=== PATIENT | male | born 1980 | race Caucasian/White ===

== ENCOUNTER 2016-11-05 14:47 | Emergency (ER) | payer MEDICAID, OTHER ==
[2016-11-05 14:49] VITALS: BP 128/82; PULSE 86; RESP 20; TEMP 98.5; O2SAT 98
[2016-11-05] MEDS ORDERED: SODIUM CHLOR 0.9% 1000 ML INJ 1,000 ML IV ONE (15:03)
[2016-11-05 15:11] VITALS: O2SAT 97
[2016-11-05] MEDS ORDERED: SODIUM CHLORIDE 0.9% FLUSH 10 ML FLUSH IVF PRN (15:15)
[2016-11-05 15:19] LABS: AUTOMATED NEUTROPHIL # 6.4 TH/MM3 (1.8-7.7); BASOPHIL # 0.1 TH/MM3 (0-0.2); BASOPHIL % 0.6 % (0.0-2.0); EOSINOPHIL # 0.1 TH/MM3 (0-0.4); EOSINOPHIL % 1.2 % (0.0-4.0); HEMO FLAGS DIFF FINAL; LYMPH % 17.3 % (9.0-44.0); LYMPHOCYTE # 1.5 TH/MM3 (1.0-4.8); MEAN CELL VOLUME 83.1 FL (80.0-100.0); MEAN CORPUSCULAR HEMOGLOBIN 27.8 PG (27.0-34.0); MEAN CORPUSCULAR HGB CONC 33.4 % (32.0-36.0); MONO % 7.5 % (0.0-8.0); NEUT % 73.4 % (16.0-70.0); PLATELET COUNT 235 TH/MM3 (150-450); RED BLOOD COUNT 5.06 MIL/MM3 (4.50-5.90); RED CELL DISTRIBUTION WIDTH 13.3 % (11.6-17.2); WHITE BLOOD COUNT 8.8 TH/MM3 (4.0-11.0)
[2016-11-05 15:29] LABS: CHLORIDE 106 MEQ/L (98-107); POTASSIUM 4.4 MEQ/L (3.5-5.1); SODIUM (NA) 140 MEQ/L (136-145)
[2016-11-05 15:34] LABS: ANION GAP 7 MEQ/L (5-15); BICARBONATE 27.1 MEQ/L (21.0-32.0); BLOOD UREA NITROGEN 16 MG/DL (7-18)
[2016-11-05 15:37] LABS: ALT (GPT) 17 U/L (12-78); AST (GOT) 12 U/L (15-37); GLOMERULAR FILTRATION RATE 89 ML/MIN (>89)
[2016-11-05 15:39] LABS: TOTAL BILIRUBIN ADULT 0.5 MG/DL (0.2-1.0)
[2016-11-05 15:40] LABS: ALKALINE PHOSPHATASE 83 U/L (45-117); CREATINE KINASE 165 U/L (39-308)
[2016-11-05 15:52] VITALS: BP 112/78; PULSE 83; RESP 20; O2SAT 96
--- NOTE | 2016-11-05 15:57 | PD ---
HPI Chief Complaint: Syncope/Near-Syncope Time Seen by Provider: 14:58 Travel History International Travel<30 days: No Contact w/Intl Traveler<30days: No Traveled to known affect area: No History of Present Illness HPI This is a 36-year-old male who presents to the emergency department having had an episode of syncope while he was standing in line at [employer]. The patient reports that he felt lightheaded and dizzy and a little bit clammy and the next thing he knew he was on the floor. People were sure he didn't hit his head. He is not having a headache. He denies any associated chest pain or shortness of breath and denies any fevers or chills. He says he hadn't eaten since last night at 9 PM. He says his had an episode of syncope once long ago in the past and they never figured out why. He is otherwise healthy. PFSH Past Medical History Diminished Hearing: No Immunizations Current: Yes Social History Alcohol Use: No Tobacco Use: No Substance Use: No Allergies-Medications (Allergen,Severity, Reaction): Coded Allergies: No Known Allergies (Verified , 11/05/16) Reported Meds & Prescriptions Reported Meds & Active Scripts Active No Active Prescriptions or Reported Medications Review of Systems Except as stated in HPI: all other systems reviewed are Neg Physical Exam Narrative GENERAL:Well appearing, no acute distress SKIN: Focused skin assessment warm and dry. HEAD: Atraumatic. Normocephalic. EYES: Pupils equal and round. No injection or drainage. ENT: Moist mucous membranes NECK: Trachea midline. CARDIOVASCULAR: Regular rate and rhythm. No murmur appreciated. RESPIRATORY: Clear to auscultation. Breath sounds equal bilaterally. GASTROINTESTINAL: Abdomen soft, non-tender, nondistended. MUSCULOSKELETAL: No obvious deformities. NEUROLOGICAL: Awake and alert. No obvious cranial nerve deficits. Moving all extremities. PSYCHIATRIC: Appropriate mood and affect; insight and judgment normal. Data Data Last Documented VS Vital Signs Date Time Temp Pulse Resp B/P Pulse Ox O2 Delivery O2 Flow Rate FiO2 11/05/16 15:52 83 20 112/78 96 11/05/16 14:49 98.5 Orders Electrocardiogram (11/05/16 15:03) Complete Blood Count With Diff (11/05/16 15:03) Comprehensive Metabolic Panel (11/05/16 15:03) Ecg Monitoring (11/05/16 15:03) Iv Access Insert/Monitor (11/05/16 15:03) Oximetry (11/05/16 15:03) Sodium Chloride 0.9% Flush (Ns Flush) (11/05/16 15:15) Sodium Chlor 0.9% 1000 Ml Inj (Ns 1000 M (11/05/16 15:03) Creatine Kinase (Cpk) (11/05/16 15:03) Ed Poc Ultrasound (11/05/16 ) Labs Laboratory Tests Test 11/05/16 15:10 White Blood Count 8.8 TH/MM3 Red Blood Count 5.06 MIL/MM3 Hemoglobin 14.1 GM/DL Hematocrit 42.0 % Mean Corpuscular Volume 83.1 FL Mean Corpuscular Hemoglobin 27.8 PG Mean Corpuscular Hemoglobin 33.4 % Concent Red Cell Distribution Width 13.3 % Platelet Count 235 TH/MM3 Mean Platelet Volume 6.2 FL Neutrophils (%) (Auto) 73.4 % Lymphocytes (%) (Auto) 17.3 % Monocytes (%) (Auto) 7.5 % Eosinophils (%) (Auto) 1.2 % Basophils (%) (Auto) 0.6 % Neutrophils # (Auto) 6.4 TH/MM3 Lymphocytes # (Auto) 1.5 TH/MM3 Monocytes # (Auto) 0.7 TH/MM3 Eosinophils # (Auto) 0.1 TH/MM3 Basophils # (Auto) 0.1 TH/MM3 CBC Comment DIFF FINAL Differential Comment Sodium Level 140 MEQ/L Potassium Level 4.4 MEQ/L Chloride Level 106 MEQ/L Carbon Dioxide Level 27.1 MEQ/L Anion Gap 7 MEQ/L Blood Urea Nitrogen 16 MG/DL Creatinine 0.95 MG/DL Estimat Glomerular Filtration 89 ML/MIN Rate Random Glucose 119 MG/DL Calcium Level 9.1 MG/DL Total Bilirubin 0.5 MG/DL Aspartate Amino Transf 12 U/L (AST/SGOT) Alanine Aminotransferase 17 U/L (ALT/SGPT) Alkaline Phosphatase 83 U/L Total Creatine Kinase 165 U/L Total Protein 7.6 GM/DL Albumin 3.7 GM/DL MDM Medical Decision Making Medical Screen Exam Complete: Yes Emergency Medical Condition: Yes Interpretation(s) EKG: Low QRS voltage in the precordial leads, no ST changes, normal sinus rhythm No leukocytosis Electrolytes are reassuring Differential Diagnosis Arrhythmia, pericardial effusion, dehydration, electrolyte abnormality, vasovagal syncope Narrative Course This is a 36-year-old male who presents the emergency department having had a syncopal episode at [facility]. He hadn't eaten since last evening. He is placed on a monitor and an IV was established. Labs are obtained which were reassuring. EKG was nonischemic. It did demonstrate some low voltage. I performed a bedside ultrasound which demonstrated no pericardial effusion. I think the patient can safely be discharged. He is young and otherwise healthy. Diagnosis Primary Impression: Syncope Qualified Code: R55 - Vasovagal syncope Patient Instructions: General Instructions Additional Instructions: If you develop severe chest pain, shortness of breath, sweating, lightheadedness , dizziness or difficulty breathing return to the emergency department immediately. Followup with your primary care physician in 2-3 days if your symptoms are not resolved. Med/Other Pt SpecificInfo: No Change to Meds Scripts No Active Prescriptions or Reported Meds Disposition: 01 DISCHARGE HOME Condition: Stable ([id number]) Melania Fontana MD November 05, 2016 15:57
--- NOTE | 2016-11-06 18:43 | EKG ---
Date Performed: 11/05/2016 Time Performed: 14:38:00 PTAGE: 36 years EKG: Sinus rhythm . Low QRS voltages in precordial leads Borderline ECG NO PREVIOUS TRACING DOCTOR: Jordan Maher Interpretating Date/Time 11/06/2016 18:42:16
== END 2016-11-05 16:45 | disposition home or self-care (01) ==
LOC: PHED 14:47
DX: R55 Syncope and collapse (principal); R94.31 Abnormal electrocardiogram [ECG] [EKG]
CPT/HCPCS: 80053; 82550; 85025; 93005; 96360; 99284; J7030